=== PATIENT | female | born 1970 | race Caucasian/White ===

== ENCOUNTER 2018-09-05 19:51 | Emergency (ER) | payer OTHER ==
[~2018-09-05] VITALS: Ht 165.1 cm; Wt 64.9 kg
[~2018-09-05 19:51] MED LIST: ANTIVERT25 M1 PO; BACTROBAN OINT22 GM TP; BUDEO.25 IH; DOXYCYCLINE HY100 MG PO; GILPHEX TR TAB1 EACH PO; IPRATROPIU0.2 MG/1 M IH; KETO10TA2 PO; MEDROLPACK PO; ORPH100T PO; PEPCID40 MG PO; PROVENTIL3 ML/2.5 M IH; TESSALON PERLE100 M1 PO; TUSSI-PRES LIQ118 ML PO; Xopenex 1.25 MG/3 ML IH; ZITHROMAX500 MG PO; ZOFRAN4 MG PO
[2018-09-06] MEDS ORDERED: ZOFRAN8 MG PO (03:48)
[2018-09-06] MEDS ORDERED: PEPCID40 MG PO (03:48)
== END 2018-09-06 03:55 | disposition home or self-care (01) ==
LOC: ER 19:51
DX: K29.70 Gastritis, unspecified, without bleeding (principal); R11.2 Nausea with vomiting, unspecified

== ENCOUNTER → 2019-11-08 | Emergency (ER) | payer OTHER ==
[~2019-11-08] VITALS: Ht 162.6 cm; Wt 64.9 kg
[~2019-11-08] MED LIST changes: +CLONAZEPAM0.5 MG PO; +LITHIUM CARBON300 MG PO; +ZOFRAN8 MG PO
== END | disposition home or self-care (01) ==
LOC: ER 16:58
DX: R51 Headache (principal); R42 Dizziness and giddiness

== ENCOUNTER → 2020-10-25 | Emergency (ER) | payer OTHER ==
[~2020-10-25] VITALS: Ht 165.1 cm; Wt 66.2 kg
[~2020-10-25] MED LIST changes: +ANTIVERT; +MECLIZINE HCL25 MG PO
== END | disposition home or self-care (01) ==
LOC: ER 19:49
DX: R42 Dizziness and giddiness (principal)

== ENCOUNTER 2022-07-26 20:35 | Emergency (ER) | payer OTHER ==
[~2022-07-26] VITALS: Ht 165.1 cm; Wt 67.6 kg
== END 2022-07-27 03:42 | disposition home or self-care (01) ==
LOC: ER 20:35
DX: K59.01 Slow transit constipation (principal)